=== PATIENT | female | born 1975 | race Caucasian/White ===

== ENCOUNTER 2016-06-26 11:33 | Day surgery (SDC) | payer OTHER, MEDICAID ==
[~2016-06-26] VITALS: Ht 165.1 cm; Wt 62.6 kg
[2016-06-26] VITALS (9 sets, daily range): BP systolic 96–111; BP diastolic 57–69; PULSE 57–78; RESP 11–20; O2SAT 97–100
[~2016-06-26 11:33] MED LIST: RISP0.5T4 PO; SERT50TA9 PO; SUMA50TA2 PO
[2016-06-26] MEDS ORDERED: Ondansetron 2 mg/mL 2 mL Inj ONE (11:34)
[2016-06-26] MEDS ORDERED: Ketamine 10 mg/mL 20 mL Inj ONE (11:34)
[2016-06-26] MEDS ORDERED: fentaNYL-PF 50 mCg/mL 2 mL Inj ONE (11:34)
[2016-06-26] MEDS ORDERED: Dexamethasone 4 mg/mL Inj ONE (11:34)
[2016-06-26] MEDS ORDERED: Propofol 10,000 mCg/mL 20 mL Inj ONE (11:34)
[2016-06-26] MEDS ORDERED: Lactated Ringer's 1,000 ML IV ONE (11:39)
--- NOTE | 2016-06-26 12:17 | HP PRE OP ---
[address] [address] PREOPERATIVE HISTORY AND PHYSICAL PATIENT: DARI APARICIO : 1975 MR#: [id number] ADMIT: 06/26/2016 JOB ID: [id number] DATE: 06/26/2016 IDENTIFICATION: The patient is a 40-year-old, G5, P0, now AB 5 woman. CHIEF COMPLAINT: First trimester missed , for suction D and C. HISTORY OF PRESENT ILLNESS: This patient has had multiple prior miscarriages. Currently, she is once again, in the 9-week range. However, ultrasound on June 24, 2016, suggested fetus more in the 6-week size range, and without heartbeat. This ultrasound finding was confirmed by formal ultrasound. The patient has impeccable dates and thus is certain that she is at least 9 weeks along, although there is obvious first-trimester missed in the 6-week size range. She has considered options of observation and spontaneous miscarriage versus suction D and C, and she has definitively requested the latter. She has understood that there are risks to surgery, which include bleeding, infection, injury to the cervix or uterus, potential cervical or uterine wall perforation, potential anesthetic risks, etc. There is no guarantee that a complication would not occur. She has had all her questions answered, and she has signed informed consent for surgery. PHYSICAL EXAMINATION: On admission, height 65 inches, weight 138 pounds, blood pressure 110/64. Neck: No thyromegaly. Lungs clear to auscultation and percussion. Heart: Regular in rate and rhythm. Abdomen: Abdominal scarring noted. Pelvic examination: Vulva, vagina, and cervix without obvious epithelial abnormality. Uterus in the 6 to 7-week size range. DIAGNOSTIC DATA: Recent CBC demonstrated white blood cell count of 8.8, hemoglobin 12.9, and platelets 233 (June 12, 2016). Note free T4 at 1.13 and hemoglobin A1c of 5.4%. For ultrasound findings, see above. IMPRESSION: 1. Early first trimester missed , with patient requesting suction dilatation and curettage. 2. Reproductive history - three prior spontaneous abortions or missed abortions, two dilatation and curettages undertaken. Note also prior to elective . Then, current with another missed . 3. Surgical history: a. Dilatation and curettage x2 for spontaneous or missed , plus elective . b. Cholecystectomy. c. Hernia surgery. d. Surgery for kidney stone. e. Knee surgery. 4. Bipolar disorder, using risperidone 0.5 mg and sertraline 50 mg, patient reportedly stable. She previously was using lamotrigine, although she stopped it with positive test. 5. Migraine headache disorder, using Imitrex as needed, also previous using topiramate. 6. History of genital warts (treated in 2012). 7. Prior urinary tract infection. 8. History of abnormal Pap tests, details (?), any prior treatments (?). 9. History of smoking, stopped in 2013. 10. Requesting Mirena intrauterine device for future placement, note past use of Implanon. 11. No medication allergies. 12. Family history of hypertension (father), osteoporosis (grandmother), and breast cancer (mother, maternal grandmother, maternal great grandmother). Note that on father of baby's side, Down syndrome in the family (his brother). 13. The patient is strongly considering not trying for additional pregnancies in light of habitual . Note that her significant other has three children. PLAN: The patient will be admitted to [facility] June 26, 2016, on which day she will undergo suction D and C procedure for early first trimester missed . She will use Cytotec 200 mcg placed adjacent to the cervix a couple hours before the procedure. She will stay in touch with mental health specialists regarding bipolar disorder and medications to ensure that there is no resurgence following surgery/ loss. PHUONG
[2016-06-26] MEDS ORDERED: Lactated Ringer's 500 ML IV PRN (14:02)
[2016-06-26] MEDS ORDERED: Lactated Ringer's 1,000 ML IV SCH (14:02)
--- NOTE | 2016-06-26 14:02 | PCM.HPANE ---
Patient Data Surgeon Admitting Provider: Attending Provider:Jose Patricio MD Primary Care Physician:Vivien Kelley MD Other Provider:[facility] Reason for Visit Missed Ab Ht/WT & BMI Height (Feet): 5 Height (Inches): 5 Weight (Kilograms): 62.59 Body Mass Index 22.00 Allergies Coded Allergies: latex (Verified Allergy, Severe, RASH, 06/26/16) Past Anesthesia History Anesthesia History: Denies:: Anesthesia Reactions, Fam Anesthesia Reaction, Fam Malignant Hypertherm, Malignant Hyperthermia Diabetes History Hx Diabetes?: No MRSA MRSA: No Medications Hypertension Medication: No Home Meds Incl Beta Emmanuel: No Reported Medications Risperidone 0.5 Mg Tablet0.5 Mg PO DAILY #30 TABLET Ref 0 06/25/16 Sertraline HCl (Sertraline)50 Mg Lyklfp72 Mg PO DAILY 30 Days Ref 0 06/25/16 Sumatriptan Succinate 50 Mg Htipmf31 Mg PO PRN migraines 06/25/16 Discontinued Reported Medications Cholestyramine (Questran Powder)378 Gm Powd9 Gm PO DAILY #1 CAN Ref 0 REGULATES BOWELS AFTER HOMER 09/13/13 Hydroxyzine Pamoate (Vistaril)50 Mg Inmzzcf01 Mg PO HS PRN For Insomnia Ref 0 09/13/13 Potassium Chloride 10 Meq Capsule.er10 Meq PO DAILY 30 Days Ref 0 TAKE WITH FOOD 09/13/13 Sumatriptan Succinate 50 Mg Rpzcfr55 Mg PO PRN PRN HEADACHE 09/13/13 Loratadine 10 Mg Awkemz02 Mg PO DAILY 30 Days Ref 0 09/13/13 Citalopram 20 Mg Mjyyni00 Mg PO DAILY 30 Days Ref 0 09/13/13 History History of ENT Problems?: No HEENT History: Denies:: Abnormal Airway Cataracts Difficult Intubation Glaucoma Hearing Problem Sinus Problem Denture Type: None Teeth Condition: Within Normal Limits Hx of Heart Problems?: No Cardiovascular History: Denies:: Cardiac Surgery Chest Pain Congestive Heart Failure Heart Murmur Hypertension Irregular Heartbeat Pacemaker Hx of Respiratory Problem?: No Respiratory History: Denies:: Asthma COPD Emphysema Oxygen Administration Pneumonia (2 years ) Tuberculosis Use of C-PAP Machine Hx Neurologic Problems?: Yes Neurological History: Positive for:: Headaches (9-10 headaches month) Denies:: CVA Multiple Sclerosis Parkinson's Disease Seizures Hx of GI Problems?: Yes Gastrointestinal History: Positive for:: Gall Bladder Disease (removed) Denies:: Cirrhosis Gastroesphageal Reflux Gastrointestinal Bleeding Hepatitis Hx of Problems?: Yes Genitourinary History: Positive for:: Kidney Stones (past hx of, required surgery) Denies:: Urinary Tract Infection Female Hx: Positive for:: Problems with Breasts? (left breast lump- bx benign ) Denies:: Currently (missed ab- current admission problem) Skin History: Denies:: History Skin Disorders? Pressure Ulcers Hx Musculoskeletal Problems?: Yes Musculoskeletal History: Positive for:: Musculoskeletal Trauma (hx of left knee, 2 prior surgery) Osteoarthritis Denies:: Back Injury Fibromyalgia Joint Replacement Systemic Lupus Hx of Psycho/Social Problems?: Yes Psycho Social History: Positive for:: Anxiety Hx Depression Hx Surgeries?: Yes (HOMER,RT INGUINAL HERNIA, kidney stones removed, L ACL & meniscus repair) Hx Any Other Health Problems?: Yes Other History: Denies:: Cancer Endocrine Disease Hospitalization Thyroid Disease History Blood Transfusions: Positive for:: Accept Blood Products? Denies:: Blood Transfusions Hx Diabetes: No Hx Alcohol Use: NoHx Substance Use: No Smoking Status: Former Smoker Have You Smoked inLast 12 mo: No Stop/Bang Treated for Sleep Apnea?: No Do You Have a CPAP Machine?: No S-Snoring: Do You Snore Loudly: No T-Tired: feel tired, fatigued: No O-Obsered: Observed not breath: No P-Blood Pressure: treated: No B- Body Mass Index > 35 kg/m2: No A- Age over 50: No N- Neck Large Circumference: No G- Gender Male: No HECTOR Total Score: 0 Risk Assessment Category Category 1A: Patient has history of documented sleep apnea, and HAS NOT received any narcotic, sedative or anesthesia administration during this stay. Category 1B: Patient has history of documented sleep apnea, and HAS received any narcotic , sedative or anesthesia administration during this stay Category 2: Patient has SUSPECTED Obstructive Sleep Apnea, and HAS received any narcotic , sedative or anesthesia administration during this stay. Category 3: Patient has SUSPECTED Obstructive Sleep Apnea and HAS NOT received narcotic, sedative or anesthesia administration during this stay. Category 4: Outpatient in Procedural Areas with known sleep apnea or who screen positive for High Risk via the STOP/BANG questionnaire. Exam Exam Vital Signs Vital Signs Date Time Temp Pulse Resp B/P Pulse Ox O2 Delivery O2 Flow Rate FiO2 06/26/16 11:49 36.0 61 14 103/59 100 Room Air General Appearance: Alert, Oriented X3, Cooperative, No Acute Distress HEENT/AIRWAY: MP 2 Lungs: Clear to Auscultation, Normal Air Movement Heart: Exam Unremarkable, Regular Rate/Rhythm, No Murmurs/Rubs/Gallops Meds/Labs/Diagnostics Admission Meds Current Medications Lactated Ringer's (Lr) 1,000 ml @ ud STK-MED ONCE IV Last administered on 06/26t 11:39; Start 06/26/16 at 11:39; Stop 06/26/16 at 11:40; Status DC Plan Impression Patient chart reviewed, patient interviewed and anesthestic plan with risks, benefits, and alternatives discussed, and informed consent obtained. NPO per Anesth. Guidelines: Yes ASA Physical Status: ASA1 Normal Healthy Anesthetic Plan: GA Bene/Risks/Altern/Consents: Yes HP Complete Prior to Induction: Yes Colt Holguin MD Jun 26, 2016 12:58 Victor Hugo Zaidi MD Jun 26, 2016 14:00
[2016-06-26] MEDS ORDERED: EPHEDrine Sulfate 50 mg/mL Inj IVPUSH PRN (14:05)
[2016-06-26] MEDS ORDERED: Ondansetron 2 mg/mL 2 mL Inj IVPUSH PRN ×2 (14:05→15:00)
[2016-06-26] MEDS ORDERED: MetoCLOpramide 5 mg/mL 2 mL Inj IVPUSH PRN ×2 (14:05→15:00)
[2016-06-26] MEDS ORDERED: Dexamethasone 4 mg/mL Inj IVPUSH PRN (14:05)
[2016-06-26] MEDS ORDERED: Phenylephrine 10,000 mCg/mL Inj IVPUSH PRN (14:05)
[2016-06-26] MEDS ORDERED: fentaNYL-PF 50 mCg/mL 2 mL Inj IVPUSH PRN (14:05)
[2016-06-26] MEDS ORDERED: HYDROmorphone 1 mg/mL Inj IVPUSH PRN (15:00)
[2016-06-26] MEDS ORDERED: oxyCODONE-Acetamin 5-325 mg Tablet PO PRN (15:15)
[2016-06-26] MEDS ORDERED: HYDROmorphone 0.5 mg/0.5 mL iSecure Syringe ONE (15:18)
--- NOTE | 2016-06-26 15:20 | PCM.ANEP1 ---
Post Anesthesia Phase 1 PACU Phase 1 Assessment Vital Signs Vital Signs Date Time Temp Pulse Resp B/P Pulse Ox O2 Delivery O2 Flow Rate FiO2 06/26/16 15:15 62 13 106/58 100 Room Air 06/26/16 15:05 36.5 71 12 104/69 97 Room Air 06/26/16 15:00 70 16 104/64 98 Room Air 06/26/16 14:55 67 20 111/59 99 Room Air 06/26/16 14:52 36.9 78 11 111/57 98 Room Air 06/26/16 11:49 36.0 61 14 103/59 100 Room Air Anesthetic Administered: GA Level of Alertness: Awake, talking FERNANDEZ's with Equal Strength: Yes Pain: No Nausea or Vomiting: No Cardiovascular Function and Hy: Yes Oxygen Delivery: Nasal Cannula Lungs: Clear to Auscultation, Normal Air Movement Dermatome Level: Full Sensation Complications: No Follow up Care: No Patient Instructions Provided: Yes Victor Hugo Zaidi MD Jun 26, 2016 15:20
[2016-06-26] MEDS: HYDROmorphone 1 mg/mL Inj IVPUSH PRN ×2 (15:39→15:50)
--- NOTE | 2016-06-27 07:43 | OP ---
[address] [address] OPERATIVE REPORT PATIENT: DARI APARICIO : 1975 MR#: [id number] ADMIT: 06/26/2016 JOB ID: [id number] DATE OF SURGERY: 06/26/2016 SURGEON: Jose Patricio MD PREOPERATIVE DIAGNOSIS(ES): First trimester missed . POSTOPERATIVE DIAGNOSIS(ES): First trimester missed . OCEANOGRAPHER PHYSICAL: None. ANESTHESIA: General. PROCEDURE PERFORMED: Suction D and C. FINDINGS AT SURGERY: Uterus sounded to 10 cm. Cervix was already dilated to about 9 mm and soft. A moderate amount of products of conception was recovered. Bleeding was minimal during the case. It certainly is anticipated that patient will do very well during the postoperative timeframe. PROCEDURE IN DETAIL: The patient was placed in supine position on the operating table and general anesthesia was induced. She was then very carefully repositioned into the low dorsal lithotomy position and prepped and draped in the usual sterile manner. Appropriate time-out was then taken. Weighted speculum was placed posteriorly and a tenaculum on the anterior cervical lip and another on the posterior cervical lip. Uterus was sounded, followed by assessment of cervical dilatation, easily dilating to 10 mm. Straight 10 suction tip was then selected and suction curettage was accomplished easily. Minimal bleeding occurred, moderate amount of products of conception was recovered, and uterus contracted down well after suction curettage. Gentle sharp curettage was then accomplished with return of no additional tissue. Final suction curettage cleared the uterus of blood and clots. The procedure was complete. Each tenaculum was removed from the cervix. Pressure was held on tenaculum sites until there was no bleeding. Uterus was massaged and contracted well and bleeding remained minimal. Instrument and sponge counts were good. The patient was returned to the supine position and awakened and taken to recovery room. ESTIMATED BLOOD LOSS: 10 cc. COMPLICATIONS: None. PROGNOSIS: Good for surgical recovery.
--- NOTE | 2016-06-27 16:34 | PATH ---
SURGICAL PATHOLOGY Attending Physician:Jose Patricio M.D CASE STATUS: Signed Out PATIENT NAME: DARI APARICIO PID: [id number] : 1975 DATE COLLECTED:06/26/2016 23:44 SPECIMEN: Products of conception CLINICAL HISTORY: MISSED 1). PRODUCTS OF CONCEPTION FINAL DIAGNOSIS: Products of Conception: Products of conception identified. ICD10: O02.1 GROSS DESCRIPTION: The specimen is received in one formalin filled container labeled with the patient's name, sublabeled "products of conception" and consists of multiple portions of tissue blood and mucoid material which aggregate to 5.0 x 4.0 x 0.4 CM. No grossly recognizable parts are observed. The specimen is entirely submitted in 4 cassettes. 06/27/2016 [facility] ICD-9 CODES: CPT CODES: 1: 51576 Electronically Signed Out Jesika Ocasio MD [facility] [address], [place] [address] Technical component performed at [facility], [facility] [address], [place], [address]
== END 2016-06-26 23:59 | disposition home or self-care (01) ==
LOC: SAS 11:33
PROVIDERS: ATTEND Obstetrics & Gynecology
PROC: 10D17ZZ Extraction of Products of Conception, Retained, Via Natural or Artificial Opening (ICD-10-PCS; principal; 2016-06-26 13:00)
DX: O02.1 Missed abortion (principal); F31.9 Bipolar disorder, unspecified; Z3A.09 9 weeks gestation of pregnancy
CPT/HCPCS: 59820; J1100; J1170; J1885; J2250; J2270; J2405; J3010; J7120